=== PATIENT | female | born 1980 | race Caucasian/White ===

== ENCOUNTER 2017-08-21 15:56 | Emergency (ER) | payer BC ==
[2017-08-21 16:14] VITALS: TEMP 98.9
[2017-08-21] MEDS ORDERED: ONDANSETRON ODT 8 MG TAB SL ONE (16:20)
[2017-08-21] MEDS ORDERED: ALUMINUM & MAGNESIUM HYDROXIDE 30 ML UD PO ONE (16:20)
--- NOTE | 2017-08-21 17:00 | RAD ---
EXAM DESCRIPTION: Chest,2 Views CLINICAL HISTORY: palpitations COMPARISON: None Available. TECHNIQUE: PA/lateral FINDINGS: Cardiomediastinal silhouette and pulmonary vascularity are within normal limits. Lungs are clear without focal consolidations. Bilateral costophrenic angles are sharp. No pneumothorax. Visualized osseous structures show no destructive lesions. IMPRESSION: No radiographic evidence for acute cardiopulmonary process. Electronically signed by: Az Pineda MD 08/21/2017 4:59 PM CDT
[2017-08-21 17:01] VITALS: BP 155/87; O2SAT 98
[2017-08-21] MEDS ORDERED: AZITHROMYCIN 250 MG TAB PO ONE (17:29)
[2017-08-21] MEDS ORDERED: SUCRALFATE 1 GM/10 ML 1 GM UD PO ONE (17:29)
--- NOTE | 2017-08-21 17:32 | ED.PDOC ---
History of Present Illness - General Chief Complaint: Cardiovascular Problem Stated Complaint: chest pain Time Seen by Provider: 08/21/17 16:11 Source: patient Exam Limitations: no limitations - History of Present Illness Initial Comments: The patient is a 36-year-old female presenting to emergency room secondary to a feeling of chest palpitations. She has been having some intermittent palpitations for the last day or 2. She is also been having episodes of nausea and vomiting for the last 3 or 4 days. She has had a couple of episodes of mild diarrhea. She did just get back from a trip to [place]. Additionally she did have a breast reduction about a month ago and has a mild dehiscence at the base of the left breast from that reduction. No significant drainage and no obvious abscess at this time. No real surrounding erythema. No fever. No real chest pain other than the palpitations. No shortness of breath. No cardiac history. Timing/Duration: unsure Severity: mild Improving Factors: nothing Worsening Factors: nothing Associated Symptoms: denies symptoms Allergies/Adverse Reactions: Allergies NO KNOWN ALLERGY Allergy (Verified 08/21/17 16:14) Home Medications: Ambulatory Orders Azithromycin 500 mg PO DAILY #5 tab 08/21/17 Buspirone HCl 10 mg PO PRN PRN 08/21/17 Famotidine 20 mg PO BID #60 tab 08/21/17 Ondansetron [Zofran Odt] 4 mg PO Q4H PRN #10 tab 08/21/17 Sucralfate Tab [Carafate Tab] 1 gm PO QID #60 tab 08/21/17 Thyroid [Project Management Intern Thyroid 30] 30 mg PO DAILY 08/21/17 Review of Systems - Review of Systems Constitutional: States: no symptoms reported EENTM: States: no symptoms reported Respiratory: States: no symptoms reported Cardiology: States: palpitations Gastrointestinal/Abdominal: States: diarrhea, nausea, vomiting Genitourinary: States: no symptoms reported Musculoskeletal: States: no symptoms reported Skin: States: no symptoms reported Neurological: States: no symptoms reported All other Systems: No Change from Baseline Past Medical History (General) - Patient Medical History Hx Thyroid Disease: Yes Surgical History: Hysterectomy, other - Vaccination History Hx Tetanus, Diphtheria Vaccination: Yes Hx Influenza Vaccination: Yes Hx Pneumococcal Vaccination: No - Social History Hx Tobacco Use: Yes Hx Alcohol Use: Yes Hx Substance Use Treatment: No - Female History Patient is a Female of Child Bearing Age (10 -59 yrs old): No Family Medical History - Family History Mother Family History: Unknown Physical Exam - Physical Exam General Appearance: Alert, Comfortable, No apparent distress Eye Exam: bilateral normal Ears, Nose, Throat: hearing grossly normal, normal ENT inspection, normal pharynx Neck: full range of motion, supple, normal inspection Respiratory: lungs clear, normal breath sounds, no respiratory distress, no accessory muscle use Cardiovascular/Chest: normal peripheral pulses, regular rate, rhythm, no edema Peripheral Pulses: radial,right: 2+, radial,left: 2+, dorsalis pedis,right: 2+, dorsalis pedis,left: 2+ Gastrointestinal/Abdominal: non tender, soft Rectal Exam: deferred Back Exam: normal inspection, no CVA tenderness Extremity: normal range of motion, non-tender, normal inspection, no pedal edema , normal capillary refill 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 Progress - Progress Progress: 08/21/17 17:33 the patient is a 36-year-old female presenting to the emergency room secondary to a sensation of palpitations. The patient has experienced those while here in the emergency room on telemetry monitoring and there is no evidence of any significant arrhythmia. Given her intestinal symptoms is likely she has a gastroenteritis giving some mild esophageal dysmotility and spasms. The patient needs to use Maalox as needed to help reduce symptoms. Additionally she will be written for Carafate 4 times a day use for the next 2 weeks as well as Pepcid twice daily for the next month. The patient is going to be placed on azithromycin for the next 5 days at 500 mg daily for possible travel associated gastroenteritis. Laboratory work and x-ray were reassuring. EKG was reassuring. The patient should follow up with her primary care doctor towards the end of the week for reevaluation. She needs to keep herself well hydrated. Zofran will also be written for as needed use for any further nausea. - Results/Orders Results/Orders: Laboratory Tests 08/21/17 08/21/17 08/21/17 16:26 16:26 16:26 WBC 11.8 H RBC 4.66 Hgb 13.5 Hct 39.4 MCV 84.6 MCH 28.9 MCHC 34.2 RDW 14.0 Plt Count 215 MPV 7.8 Absolute Neuts (auto) 7.30 H Absolute Lymphs (auto) 3.50 H Absolute Monos (auto) 0.60 Absolute Eos (auto) 0.30 Absolute Basos (auto) 0.10 Neutrophils % 61.9 Lymphocytes % 29.7 Monocytes % 5.1 Eosinophils % 2.6 Basophils % 0.7 D-Dimer, Quantitative < 230 Sodium 137 Potassium 3.7 Chloride 106 Carbon Dioxide 22 Anion Gap 12.7 BUN 13 Creatinine 0.72 BUN/Creatinine Ratio 18.1 Random Glucose 108 H Serum Osmolality 274.5 L Calcium 9.2 Magnesium 1.9 Total Bilirubin 0.5 AST 23 ALT 24 Alkaline Phosphatase 67 Creatine Kinase 229 H* CK-MB (CK-2) 3.6 CK-MB (CK-2) % 1.57 Troponin I < 0.02 B-Natriuretic Peptide 24.5 Serum Total Protein 7.0 Albumin 4.0 Globulin 3.0 Albumin/Globulin Ratio 1.3 Amylase 42 TSH 2.83 Urine HCG, Qual 08/21/17 16:26 WBC RBC Hgb Hct MCV MCH MCHC RDW Plt Count MPV Absolute Neuts (auto) Absolute Lymphs (auto) Absolute Monos (auto) Absolute Eos (auto) Absolute Basos (auto) Neutrophils % Lymphocytes % Monocytes % Eosinophils % Basophils % D-Dimer, Quantitative Sodium Potassium Chloride Carbon Dioxide Anion Gap BUN Creatinine BUN/Creatinine Ratio Random Glucose Serum Osmolality Calcium Magnesium Total Bilirubin AST ALT Alkaline Phosphatase Creatine Kinase CK-MB (CK-2) CK-MB (CK-2) % Troponin I B-Natriuretic Peptide Serum Total Protein Albumin Globulin Albumin/Globulin Ratio Amylase TSH Urine HCG, Qual Negative hest x-ray shows no acute abnormality. No widened mediastinum. No pneumonia. Departure - Departure Clinical Impression: Gastroenteritis, Palpitations, Wound dehiscence Disposition: Discharge to Home or Self Care Condition: Fair Departure Forms: ED Discharge - Pt. Copy, Patient Portal Self Enrollment Instructions: DI for Bacterial Gastroenteritis -- Adult Diet: bland diet Activity: increase activity as tolerated Referrals: BETHANY ALMANZA,JUAN Atkins [Primary Care Provider] - 1-5 Days Prescriptions: Azithromycin 500 mg PO DAILY #5 tab Famotidine 20 mg PO BID #60 tab Ondansetron [Zofran Odt] 4 mg PO Q4H PRN #10 tab PRN Reason: Vomiting Sucralfate Tab [Carafate Tab] 1 gm PO QID #60 tab Home Medications: Ambulatory Orders Azithromycin 500 mg PO DAILY #5 tab 08/21/17 Buspirone HCl 10 mg PO PRN PRN 08/21/17 Famotidine 20 mg PO BID #60 tab 08/21/17 Ondansetron [Zofran Odt] 4 mg PO Q4H PRN #10 tab 08/21/17 Sucralfate Tab [Carafate Tab] 1 gm PO QID #60 tab 08/21/17 Thyroid [Project Management Intern Thyroid 30] 30 mg PO DAILY 08/21/17 Additional Instructions: the patient is a 36-year-old female presenting to the emergency room secondary to a sensation of palpitations. The patient has experienced those while here in the emergency room on telemetry monitoring and there is no evidence of any significant arrhythmia. Given her intestinal symptoms is likely she has a gastroenteritis giving some mild esophageal dysmotility and spasms. The patient needs to use Maalox as needed to help reduce symptoms. Additionally she will be written for Carafate 4 times a day use for the next 2 weeks as well as Pepcid twice daily for the next month. The patient is going to be placed on azithromycin for the next 5 days at 500 mg daily for possible travel associated gastroenteritis. Laboratory work and x-ray were reassuring. EKG was reassuring. The patient should follow up with her primary care doctor towards the end of the week for reevaluation. She needs to keep herself well hydrated. Zofran will also be written for as needed use for any further nausea. The patient continues triple antibiotic ointment and a large Band-Aid to cover the area of dehiscence to the base of her left breast. No overt evidence of focal infection otherwise at the site at this time.
== END 2017-08-21 17:57 | disposition home or self-care (01) ==
LOC: ER 15:56
DX: R00.2 Palpitations (principal); K52.9 Noninfective gastroenteritis and colitis, unspecified; T81.30XA Disruption of wound, unspecified, initial encounter; E07.9 Disorder of thyroid, unspecified; Z87.891 Personal history of nicotine dependence
CPT/HCPCS: 36415; 71046; 80053; 81001; 81025; 82150; 82550; 82553; 83735; 83880; 84443; 84484; 85025; 85379; 93005; Q0144